=== PATIENT | female | born 1950 | race Caucasian/White ===

== ENCOUNTER → 2016-07-16 | Outpatient (CLI) | payer OTHER, MEDICARE ==
[~2016-07-16] VITALS: Ht 152.4 cm; Wt 64.9 kg
[~2016-07-16] MED LIST: MOBIC15 MG PO; NAPROSYN500 MG PO; SIMVASTATIN20 MG PO
--- NOTE | ~2016-07-16 | HPC ---
[facility] [address] [place] [address] PAIN MANAGEMENT CONSULTATION Name: MAKENZIE MAR Room #: [facility] [id number] Admission: 07/16/16 Attend Phys: Wolf Barron, DO Discharge: Date of : 48 Report #: [id number] THIS REPORT FOR: //name// CC: Francisco Dudley, Nurse Practitioner [place] Wolf Barron The patient is a 65-year-old female seen in consultation at request of [facility] for evaluation and treatment of pain, neck, left shoulder, and arm. The patient has had chronic cervical issues, had a series of cervical epidural injections some 4 years ago with excellent improvement of symptoms, has had symptoms intermittently, most recent exacerbation recurred without antecedent trauma and overuse, pain is in the left neck with radiation into the index and long finger on the left side. She has tried ice and Naprosyn with nominal efficacy. Denies any myelopathic symptoms. No symptoms are exacerbated with any use of the left arm. She describes the pain as constant, burning, shooting, aching, throbbing and stabbing, rates it an 8-10 on a 0-10 visual analog scale. REVIEW OF SYSTEMS: A complete review of systems was attached to chart and was gone over with the patient. She is , does not smoke, drinks alcohol to excess. History of dyslipidemia for which she takes simvastatin. Chronic neck issues with history of cervical radiculopathy, has otherwise enjoyed a remarkably good health. She has been retired for a number of years, works as a volunteer for . Pain impact score is 45/70. PHYSICAL EXAMINATION: Reveals a 5 feet 4 inches, 140-pound female, BMI is 27.9 kg/m2. Blood pressure 143/96, pulse 70, and respirations of 16. Cranial nerves 2-12 are grossly intact. Pupils are equal and reactive to light and accommodation. Extraocular muscles are intact. Cervical range of motion is full with positive Lhermitte's, radiating to the left neck, shoulder, index and long finger. Thyroid is unremarkable. Heart is regular and rhythmical without murmur. Lungs are clear to auscultation. Abdomen is benign. Gait is tandem. Hand grasp is symmetric. There is objective decreased left triceps and wrist extension. Strength in the biceps and reflexes are symmetric. Brachioradialis and triceps reflex nominally diminished on the left side. Tinel's is negative. We reviewed diagnostic studies including MRI of the cervical spine from 11/29/2011, at the time of the patient's last cervical epidural injection, noting mild cervical spondylosis. At that time, she had left-sided uncovertebral joint hypertrophy at C5-C6 and similarly bilateral uncovertebral ridging and neural foraminal narrowing at C6-C7. ASSESSMENT: Symptomatic cervical radiculopathy in a patient somewhat dated MRI, classic C7 radicular symptoms. [address] [address] PAIN MANAGEMENT CONSULTATION Name: ISABELAMAKENZIE Chanell Room #: REG JOELLEN Crooks#: [id number] Admission: 07/16/16 Attend Phys: Wolf Barron DO Discharge: Date of : 48 Report #: [id number] RECOMMENDATIONS: 1. We will start the patient on Meloxicam 15 mg 1 a day. Discontinue p.r.n. Naprosyn. 2. Epidural injection under fluoroscopy today. 3. Follow up in 3 weeks for reevaluation. Thank you for allowing me to participate in this patient's care. I will keep you abreast of her progress. PROCEDURE: Cervical epidural injection under fluoroscopy. PROCEDURE NOTE: After written and informed consent was obtained including risk of dural puncture, spinal cord trauma, paralysis and increased pain, the patient was taken to the fluoroscopy suite and placed in the prone position, with appropriate abdominal bolstering, neck was flexed, palms under the thighs. Skin was prepped with ChloraPrep. Sterile draping was applied. Skin wheal with 1% Xylocaine was raised. A 22-gauge 3-1/2 inch epidural Tuohy needle was placed via a midline approach at the C7-T1 interspace, advanced under biplanar fluoroscopy using continuous loss of resistance. With appropriate loss of resistance at the expected depth on lateral view, the glass loss of resistance syringe was disconnected. A low volume extension tubing was connected to the needle and a 5 mL syringe. Negative aspiration for cerebrospinal fluid or blood was noted. One mL of Omnipaque was injected which showed spread within the epidural space on biplanar fluoroscopy. This was followed with 80 mg of triamcinolone plus 1 mL of 1.5% preservative Xylocaine. Needle was withdrawn to the interspinous ligament, 0.5 mL of Xylocaine was used to flush the needle. The needle was then completely withdrawn. The area was cleansed. Band-Aid was applied. The patient was allowed to move off the procedure table and ambulated to the recovery room, monitored for an appropriate period of time, discharged in good and stable condition. By: [id number] Wolf Barron DO /nt
[2016-07-16 09:05] VITALS: BP 143/96
== END | disposition home or self-care (01) ==
LOC: PAIN 07:31
DX: M54.12 Radiculopathy, cervical region (principal)